=== PATIENT | female | born 1985 | race American Indian/Alaskan Native ===

== ENCOUNTER 2018-09-17 10:51 | Outpatient (CLI) | payer OTHER ==
[~2018-09-17 10:51] MED LIST: KETO10TA2 PO; ORPH100T PO; SYNTHROID150 MCG
== END 2018-09-17 10:54 | disposition home or self-care (01) ==
LOC: SONOGRAMA 10:51 → MAMO-SONO 11:15
DX: R10.13 Epigastric pain (principal)

== ENCOUNTER 2021-01-27 10:05 | Outpatient (CLI) | payer OTHER | END 2021-01-27 10:16 | disposition home or self-care (01) | LOC: SONOGRAMA 10:05 | PROVIDERS: ATTEND Dentist Oral and Maxillofacial Surgery | DX: E03.9 Hypothyroidism, unspecified (principal) ==

== ENCOUNTER → 2021-03-02 11:03 | Outpatient (CLI) | payer OTHER | END | disposition home or self-care (01) | LOC: LAB 11:03 | PROVIDERS: ATTEND Internal Medicine | DX: D69.6 Thrombocytopenia, unspecified (principal); D72.819 Decreased white blood cell count, unspecified ==

== ENCOUNTER 2022-03-17 10:03 | Outpatient (CLI) | payer OTHER | END 2022-03-17 10:19 | disposition home or self-care (01) | LOC: SONOGRAMA 10:03 | PROVIDERS: ATTEND Dentist Oral and Maxillofacial Surgery | DX: R10.9 Unspecified abdominal pain (principal) ==

== ENCOUNTER 2022-12-14 13:14 | Outpatient (CLI) | payer OTHER ==
[~2022-12-14 13:14] MED LIST changes: +DICLOFENAC POTA50 MG PO
== END 2022-12-14 13:15 | disposition home or self-care (01) ==
LOC: NUCLEAR 13:14
PROVIDERS: ATTEND Physical Medicine & Rehabilitation
DX: M85.80 Other specified disorders of bone density and structure, unspecified site (principal)

== ENCOUNTER 2023-04-26 07:32 | Outpatient (CLI) | payer OTHER | END 2023-04-26 07:34 | disposition home or self-care (01) | LOC: NUCLEAR 07:32 | PROVIDERS: ATTEND Physical Medicine & Rehabilitation | DX: M79.642 Pain in left hand (principal); M79.641 Pain in right hand; R20.0 Anesthesia of skin ==

== ENCOUNTER 2023-04-27 07:35 | Outpatient (CLI) | payer OTHER | END 2023-04-27 07:37 | disposition home or self-care (01) | LOC: NUCLEAR 07:35 | PROVIDERS: ATTEND Physical Medicine & Rehabilitation | DX: M79.642 Pain in left hand (principal); M79.641 Pain in right hand; R20.0 Anesthesia of skin ==

== ENCOUNTER → 2023-05-31 10:44 | Outpatient (CLI) | payer OTHER | END | disposition home or self-care (01) | LOC: NUCLEAR 10:44 | PROVIDERS: ATTEND Dentist Oral and Maxillofacial Surgery | DX: I87.2 Venous insufficiency (chronic) (peripheral) (principal) ==

== ENCOUNTER 2023-07-11 07:13 | Outpatient (CLI) | payer OTHER | END 2023-07-11 07:31 | disposition home or self-care (01) | LOC: TOM 07:13 | PROVIDERS: ATTEND Internal Medicine Cardiovascular Disease | DX: G54.0 Brachial plexus disorders (principal) | CPT/HCPCS: 71275 ==

== ENCOUNTER 2023-07-25 14:45 | Outpatient (CLI) | payer OTHER | END 2023-07-25 15:06 | disposition home or self-care (01) | LOC: SONOGRAMA 14:45 | DX: N18.2 Chronic kidney disease, stage 2 (mild) (principal) ==

== ENCOUNTER 2023-10-25 07:35 | Outpatient (CLI) | payer OTHER | END 2023-10-25 07:42 | disposition home or self-care (01) | LOC: SONOGRAMA 07:35 | PROVIDERS: ATTEND Internal Medicine | DX: R00.1 Bradycardia, unspecified (principal); E03.9 Hypothyroidism, unspecified; Z91.018 Allergy to other foods ==

== ENCOUNTER → 2024-06-21 | Outpatient (CLI) | payer OTHER | END | disposition home or self-care (01) | LOC: SONOGRAMA 10:09 | PROVIDERS: ATTEND Dentist Oral and Maxillofacial Surgery | DX: E03.9 Hypothyroidism, unspecified (principal); R22.1 Localized swelling, mass and lump, neck ==

== ENCOUNTER 2025-07-18 09:44 | Outpatient (CLI) | payer OTHER | END 2025-07-18 09:54 | disposition home or self-care (01) | LOC: SONOGRAMA 09:44 | PROVIDERS: ATTEND Dentist Oral and Maxillofacial Surgery | DX: R10.20 Pelvic and perineal pain unspecified side (principal); R10.30 Lower abdominal pain, unspecified ==